=== PATIENT | male | born 1935 | race Caucasian/White ===

== ENCOUNTER 2017-07-06 16:13 | Emergency (ER) | payer OTHER, BC ==
[~2017-07-06] VITALS: Ht 177.8 cm; Wt 81.7 kg
[~2017-07-06 16:13] MED LIST: ADULT LOW DOSE81 MG PO; ALPRAZOLAM 0.50.5 M1 PO; ASPIRIN81 M2 PO; CALCIUM CITRAT250 MG PO; CRESTOR40 MG PO; FENOFIBRATE200 MG PO; FISH OIL 1,0001 EAC5 PO; LISINOPRIL20 MG PO; LUMIGAN2.5 M1 OPHTHALMIC; MULTI VITAMIN1 EACH PO; NEXIUM 40 MG CA40 M1 PO; NORVASC 5 MG TAB5 MG PO; NORVASC10 MG PO; OMEPRAZOLE40 MG PO; PANTOPRAZOLE SO40 M1 PO; PAXIL 20 MG TAB20 M1 PO; PAXIL10 MG PO; ZETIA10 MG PO; ZIAC 10-6.25 M1 EACH PO
[2017-07-06] MEDS ORDERED: COMBIGAN EYE DR10 ML OPHTHALMIC (17:59)
== END 2017-07-06 18:08 | disposition home or self-care (01) ==
LOC: ER 16:13
DX: H40.9 Unspecified glaucoma (principal); I10 Essential (primary) hypertension; E78.00 Pure hypercholesterolemia, unspecified; F10.99 Alcohol use, unspecified with unspecified alcohol-induced disorder; Z85.828 Personal history of other malignant neoplasm of skin

== ENCOUNTER 2019-01-27 14:35 | Emergency (ER) | payer BC ==
[~2019-01-27] VITALS: Ht 177.8 cm; Wt 90.7 kg
[~2019-01-27 14:35] MED LIST changes: +COMBIGAN EYE DR10 ML OPHTHALMIC
[2019-01-27] MEDS ORDERED: CELEBREX 200 M200 M1 PO (15:04)
[2019-01-27 15:19] LABS: ABSOLUTE NEUTROPHILS 4.3 thou/uL (1.4-8.2); BASOPHILS 1.1 % (0.0-2.0); EOSINOPHILS 1.8 % (0.0-3.0); HEMOGLOBIN 14.3 gm/dL (14.0-18.0); LYMPHOCYTES 14.6 % (24.0-44.0); MCH 35.6 pg (26.0-34.0); MCHC 34.8 g/dL (28.0-37.0); MCV 102.1 fL (80.0-100.0); MONOCYTES 8.3 % (1.0-8.0); PLATELET COUNT 211 thou/uL (150-400); POLYS 74.2 % (36.0-66.0); RBC 4.01 mil/uL (4.50-6.00); RDW 14.4 % (10.5-14.5); WBC 5.8 thou/uL (4.0-11.0)
[2019-01-27 15:27] LABS: ANION GAP 10 mmol/L (7-16); BUN 19 mg/dL (7-18); CALCIUM 9.3 mg/dL (8.5-10.1); CHLORIDE 101 mmol/L (98-107); CO2 28 mmol/L (21-32); CREATININE 0.9 mg/dL (0.7-1.3); GLUCOSE 159 mg/dL (74-106); SODIUM 139 mmol/L (136-145)
[2019-01-27 15:37] LABS: ALBUMIN 4.1 g/dL (3.4-5.0); MAGNESIUM 1.9 mg/dL (1.8-2.4); SGOT 27 U/L (15-37); SGPT 39 U/L (30-65); TOTAL BILIRUBIN 0.7 mg/dL (<0.1-1.0); TOTAL PROTEIN 7.7 g/dL (6.4-8.2); TROPONIN-I <0.06 ng/mL (<0.06)
[2019-01-27 16:18] LABS: URINE BILIRUBIN NEGATIVE (Negative); URINE BLOOD NEGATIVE (Negative); URINE CLARITY CLEAR; URINE COLOR YELLOW; URINE GLUCOSE-RANDOM* NEGATIVE (Negative); URINE KETONES 1+ (Negative); URINE LEUKOCYTES-REFLEX TRACE (Negative); URINE NITRITE-REFLEX NEGATIVE (Negative); URINE PROTEIN (DIPSTICK) NEGATIVE (Negative); URINE UROBILINOGEN 0.2 E.U./dl (0.2-1.0)
[2019-01-27] MEDS ORDERED: ANTIVERT25 MG PO (16:55)
[2019-01-27] MEDS ORDERED: NORCO 5-325 TA1 EACH PO (16:55)
[2019-01-27 17:03] VITALS: BP 146/57
--- NOTE | 2019-01-29 09:27 | EKG ---
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: [facility] : 1935 Requested By: German Butler Order Number: [id number] MD: Adair Og Measurements Intervals [place] Rate: 91 P: 66 TN: 185 QRS: -55 QRSD: 137 T: 39 QT: 422 QTc: 520 Interpretive Statements Sinus rhythm Multiple ventricular premature complexes RBBB and LAFB No previous ECG available for comparison Electronically Signed On 01-29-2019 9:26:50 CDT by Adair Og [email or web address] ��������������������������������������������� <ELECTRONICALLY SIGNED> ���������������������������������������� By: Adair Og MD, [facility] ��������������������������������������������� 01/29/19 0926 1501 1501 Adair Og MD, FACC /EPI
== END 2019-01-27 17:04 | disposition home or self-care (01) ==
LOC: ER 14:35
PROVIDERS: Emergency Medicine
DX: I10 Essential (primary) hypertension (principal); M79.18 Myalgia, other site; R42 Dizziness and giddiness; E78.00 Pure hypercholesterolemia, unspecified; Z85.828 Personal history of other malignant neoplasm of skin

== ENCOUNTER → 2019-12-08 | Outpatient (CLI) | payer BC, OTHER ==
[~2019-12-08] MED LIST changes: +ANTIVERT25 MG PO; +CELEBREX 200 M200 M1 PO; +NORCO 5-325 TA1 EACH PO
== END ==
LOC: RAD 13:17
DX: J40 Bronchitis, not specified as acute or chronic (principal); R05 Cough; J84.10 Pulmonary fibrosis, unspecified; R91.8 Other nonspecific abnormal finding of lung field

== ENCOUNTER → 2019-12-17 | Outpatient (CLI) | payer BC, OTHER | LOC: RAD 16:18 | DX: J84.9 Interstitial pulmonary disease, unspecified (principal); J98.4 Other disorders of lung ==

== ENCOUNTER → 2021-02-22 | Outpatient (CLI) | payer BC | LOC: NUC 13:54 | PROVIDERS: ATTEND Internal Medicine | DX: M81.0 Age-related osteoporosis without current pathological fracture (principal) ==